=== PATIENT | male | born 1995 | race American Indian/Alaskan Native ===

== ENCOUNTER 2022-03-11 17:30 | Inpatient (IN) ==
[2022-03-11] MEDS ORDERED: SODIUM CHLORIDE 0.9% 1000ML 1,000 ML IV STA (17:57)
--- NOTE | 2022-03-11 18:10 | Emergency Department Note ---
Impression & Plan Perforated abdominal viscus, Abdominal pain ED Provider Note Provider: Rosalio Shaikh MD DATE OF SERVICE: 03/11/2022 CHIEF COMPLAINT: Lower abdominal pain HISTORY OF PRESENT ILLNESS: Patient is a 26-year-old gentleman presenting via ambulance from the detention today with the onset this afternoon of lower abdominal discomfort while getting his hair done. Patient vomited twice. Reports some shortness of breath at this time. Denies URI symptoms. Denies back pain or chest pain. Denies ingestion. Denies genital pain. No bloody quality of the vomit earlier. No medicines prior to arrival. No history of fever, trauma, or significant intra-abdominal surgery. Does report a bit of heartburn at times. REVIEW OF SYSTEMS: A total of 10 review of systems was obtained and negative except as stated above in the HPI. PAST MEDICAL HISTORY: As noted above MEDICATIONS: None reported. SOCIAL HISTORY: Prisoner at [facility] PHYSICAL EXAM: GENERAL: alert and oriented on stretcher somewhat tachypneic with guards. Head: normocephalic and atraumatic EYES: No injection, discharge or icterus. NECK: Trachea midline. Supple. ENT: Mucous membranes pink and moist. LUNGS: Airway patent. No retractions. Breath sounds clear with good air entry bilaterally. HEART: Regular rate and rhythm. No chest wall tenderness ABDOMEN: Soft without guarding or significant pain. Patient asked for his lower abdomen be touched as he states this feels improved. Negative Mcknight sign thus. Not peritoneal neck. SKIN: Acyanotic, warm, dry, without rashes EXTREMITIES: Without swelling, tenderness or deformity NEUROLOGICAL: No focal deficits. No aphasia. No facial droop or slurred speech. EK bpm normal sinus rhythm. No PVC or PAC. No acute ST segment elevation or depression with QTC 475. Normal axis. No priors. CONTINUOUS CARDIAC MONITORING: was ordered and showed a heart rate of 90s-100s bpm in normal sinus rhythm to sinus tachycardia Patient's laboratory studies and imaging reviewed. Differential includes Appendicitis, testicular torsion, infections, diverticul itis, UTI, obstruction, mesenteric ischemia, aortic pathology, inflammatory bowel disease, renal colic, PUD, pancreatitis, biliary pathology, hernia, volvulus, constipation, as well as other pathologies. IMPRESSION/MEDICAL DECISION MAKING: Reports lower abdominal discomfort but not pain worse with palpation actually improved with palpation. Denies complaint. No blood reported in the vomit earlier. Basic blood work including troponin and lipase were sent. CT of the pelvis to exclude intra-abdominal pathology be completed. Denies foreign body ingestion. No significant trauma history. X-ray obtained. Not hypoxic here and I doubt he is suffering from PE especially with the lower abdominal discomfort he reports. Given some symptomatic treatment with fluids, Zofran, and Toradol initially. Blood work without leukocytosis and minimal anemia. No significant electrolyte abnormality. No evidence of hepatitis or pancreatitis. No evidence of cardiac injury and negative COVID testing. CT abdomen pelvis completed per radiology pneumoperitoneum is noted with the top of normal limits appendix but concern for possible gastric or duodenal ulcer given some inflammation in that area. Patient does endorse of heartburn symptoms but denies significant NSAID usage or alcohol usage at this point. Given some morphine for pain. Given a dose of Protonix as well. Discussed with general surgery team findings now having significant tenderness on exam of the abdomen. Given a dose of Zosyn. DIAGNOSIS: Perforated viscus, lower abdominal pain, nausea and vomiting DISPOSITION: To the OR with general surgery Past Med/Surg History Medical History (Updated 03/11/22 @ 23:12 by Rosalio Shaikh M.D.) Perforated abdominal viscus Social History Smoking Status: Current every day smoker Preferred Language: Macedonian Results & Data (ED) Vital Signs Vital Signs - 24 hr 03/11/22 17:36 03/11/22 18:01 03/11/22 18:14 Temperature 36.5 C Temperature Source Oral Pulse Rate 99 H 100 H 94 H Pulse Rate [Right Finger] Pulse Rate from SpO2 Sensor 94 H Respiratory Rate 18 18 26 H Respiratory Effort / Characteristics Non-Labored Spontaneous Respiratory Depth Normal Respiratory Pattern Regular Blood Pressure 154/93 H 136/75 Blood Pressure [Right Arm] Blood Pressure Mean 113 95 Blood Pressure Mean [Right Arm] Blood Pressure Position Sitting Pulse Oximetry 96 97 97 Oxygen Delivery Method Room Air Room Air Room Air Sepsis Recent Fever Within 48 Hours No Sepsis New/Unexplained Change in Mental Status No Sepsis Action Taken by Nursing No Action Required 03/11/22 18:30 03/11/22 21:00 Temperature Temperature Source Pulse Rate 93 H Pulse Rate [Right Finger] 94 H Pulse Rate from SpO2 Sensor 95 H Respiratory Rate 44 H 16 Respiratory Effort / Characteristics Respiratory Depth Respiratory Pattern Blood Pressure 138/82 Blood Pressure [Right Arm] 137/73 Blood Pressure Mean 100 Blood Pressure Mean [Right Arm] 94 Blood Pressure Position Pulse Oximetry 93 96 Oxygen Delivery Method Room Air Sepsis Recent Fever Within 48 Hours Sepsis New/Unexplained Change in Mental Status Sepsis Action Taken by Nursing Laboratory Data Result diagrams: 03/11/22 17:39 03/11/22 17:39 Lab Results 03/11/22 03/11/22 03/11/22 Range/Units 17:39 17:39 18:14 WBC 8.08 (4.8-10.8) K/uL RBC 4.91 (4.7-6.1) M/uL Hgb 13.5 L (14.0-18.0) g/dL Hct 39.2 L (42-52) % MCV 79.8 L (80-100) fL MCH 27.5 (25-34) pg MCHC 34.4 (32-36) g/dL RDW Std Deviation 34.3 L (36.4-46.3) fL RDW Coeff of Diann 11.8 (11.5-14.5) % Plt Count 260 (130-400) K/uL MPV 11.5 H (7.4-10.4) fL Immature Gran % (Auto) 0.1 % Neut % (Auto) 61.2 % Lymph % (Auto) 29.7 % Fallon % (Auto) 8.7 % Eos % (Auto) 0.2 % Baso % (Auto) 0.1 % Neut # (Auto) 4.94 (1.4-6.5) K/uL Lymph # (Auto) 2.40 (1.2-3.4) K/uL Fallon # (Auto) 0.70 H (0.11-0.59) K/uL Eos # (Auto) 0.02 (0-0.5) K/uL Baso # (Auto) 0.01 (0-0.2) K/uL Immature Gran # (Auto) 0.01 (0.00-0.02) K/uL Sodium 138 (136-145) mmol/L Potassium 3.5 (3.5-5.1) mmol/L Chloride 105 (98-107) mmol/L Carbon Dioxide 25 (21-32) mmol/L Anion Gap 8 (3-11) BUN 14 (6-23) mg/dl Creatinine 0.87 (0.6-1.4) mg/dl Est Cr Clr Drug Dosing 126.7 ml/min Est GFR ( Amer) 140.0 ml/min Est GFR (Non-Af Amer) 120.8 ml/min BUN/Creatinine Ratio 16.1 (10-20) Glucose 99 (70-99(Fasting)) mg/dl Calcium 9.4 (8.5-10.1) mg/dl Total Bilirubin 1.0 (0.2-1.0) mg/dl AST 19 (13-39) U/L ALT 17 (7-52) U/L Alkaline Phosphatase 83 (34-104) U/L Troponin I High Sens 6.6 (0-20) pg/ml Total Protein 7.2 (6.0-8.3) gm/dl Albumin 4.5 (3.4-5.0) gm/dl Globulin 2.7 (2.5-4.0) gm/dl Albumin/Globulin Ratio 1.7 (0.9-2) Lipase 31 (11-82) U/L SARS-CoV-2, RNA, NAAT NEGATIVE (NEGATIVE) Administered Medications Discontinued Medications Sodium Chloride (Nss 1000ml) 1,000 mls @ 999 mls/hr IV .Q1H1M STA Stop: 03/11/22 18:57 Last Infusion: 03/11/22 19:34 Dose: 0 mls/hr Documented by: [id number] Admin: 03/11/22 18:33 Dose: 999 mls/hr Documented by: [id number] Pantoprazole Sodium 80 mg/ (Dextrose) 100 mls @ 400 mls/hr IV ONE STA Stop: 03/11/22 21:08 Last Infusion: 03/11/22 22:00 Dose: 0 mls/hr Documented by: [id number] Admin: 03/11/22 21:41 Dose: 400 mls/hr Documented by: [id number] Piperacillin Sod/Tazobactam Sod (Zosyn) 4.5 gm in 120 mls @ 240 mls/hr IV NOW ONE Stop: 03/11/22 21:25 Last Infusion: 03/11/22 21:41 Dose: 0 mls/hr Documented by: [id number] Admin: 03/11/22 21:03 Dose: 240 mls/hr Documented by: [id number] Ioversol (Optiray 320 100ml) 94 ml IV ONCE ONE Stop: 03/11/22 20:04 Last Admin: 03/11/22 20:04 Dose: 94 ml Documented by: [id number] Ketorolac Tromethamine (Ketorolac Tromethamine 15 Mg/Ml Vial) 10 mg IV NOW ONE Stop: 03/11/22 18:12 Last Admin: 03/11/22 18:33 Dose: 10 mg Documented by: [id number] Morphine Sulfate (Morphine Sulfate 4 Mg/Ml 1 Ml Carp\Vial) 4 mg IV NOW STA Stop: 03/11/22 20:55 Last Admin: 03/11/22 21:03 Dose: 4 mg Documented by: [id number] Ondansetron HCl (Ondansetron Inj 2 Mg/Ml 2 Ml Vial) 4 mg IV NOW STA Stop: 03/11/22 18:12 Last Admin: 03/11/22 18:33 Dose: 4 mg Documented by: [id number] Imaging Data Radiologist's Impression: Abdomen/Pelvis CT 03/11/22 17:[address] WITH IV CONTRAST CT DOSE: 588.31 mGycm HISTORY: Acute nausea with lower abdominal pain nausea, lower pain TECHNIQUE: Multiaxial CT images of the abdomen and pelvis were performed following the IV administration of 94 cc of Optiray, A dose lowering technique was utilized adhering to the principles of ALARA. COMPARISON STUDY: Chest radiograph of same day FINDINGS: Study is degraded by respiratory motion artifact. Imaged inferior cardiac chambers are unremarkable. Mild dependent subsegmental bibasilar atelectasis. There is a considerable amount of pneumoperitoneum which is most pronounced within the mid and upper abdomen. Unremarkable spleen, pancreas and adrenal glands. There is equivocal gallbladder wall thickening. Unremarkable liver. Patency of the hepatic and portal veins. Unremarkable kidneys. No hydronephrosis. Partially decompressed bladder with mild wall thickening. Small volume of abdominal pelvic ascites. Small hiatal hernia with distal esophageal wall thickening. Limited evaluation of the large and small bowel secondary to motion artifact. The appendix measures within the upper limits of normal at 7 mm. No definite periappendiceal inflammation. There is wall thickening within the pylorus and proximal duodenum with mild adjacent inflammatory stranding. Unremarkable soft tissues. No acute fracture. IMPRESSION: 1. Considerable amount of pneumoperitoneum compatible with perforated viscus. The site of perforation is not definitively seen, however there is wall thickening within the pylorus and proximal duodenum with mild adjacent inflammatory stranding. Findings are suspicious for a perforated ulcer. 2. The appendix measures within the upper limits of normal at 7 mm however does not appear to be inflamed. 3. Small volume of abdominal pelvic ascites. 4. Small hiatal hernia. Findings were discussed with Dr. Shaikh on 03/11/2022 at 8:52 PM. ACT 112: Negative or not required by law. The above report was generated using voice recognition software. It may contain grammatical, syntax or spelling errors. Electronically signed by: Esvin Car M.D. 03/11/2022 8:54 PM Chest X-Ray 03/11/22 17:57 XR chest 1V portable HISTORY: 26 years-old Male sob, abd pain acute shortness of breath COMPARISON: None TECHNIQUE: Portable AP view of the chest FINDINGS: The cardiomediastinal and hilar silhouettes are within normal limits. No pneumothorax, pleural effusion, airspace consolidation or overt pulmonary edema. Bones appear grossly intact. Subdiaphragmatic linear lucency is noted on the right. IMPRESSION: 1. No acute cardiopulmonary abnormality. 2. Subtle lucency noted beneath the right hemidiaphragm is favored to be projectional. Pneumoperitoneum could have a similar appearance. Correlate with the ordered CT abdomen and pelvis study of same day. ACT 112: Negative or not required by law. The above report was generated using voice recognition software. It may contain grammatical, syntax or spelling errors. Electronically signed by: Esvin Car M.D. 03/11/2022 6:28 PM Discharge Plan Visit Data Chief Complaint: Abdominal Pain ED Provider: Rosalio Shaikh ED Midlevel Provider: Sumanth Rankin Discharge Problem: Perforated abdominal viscus, Abdominal pain Patient Disposition: Admitted As Inpatient Discharge Instructions Interventions: ED Discharge Assessment Last Done: 03/11/22 21:59 Resident Activity Tracking Resident Involvement: Resident Care Provided Care Provided: Adult ED
[2022-03-11] MEDS ORDERED: KETOROLAC TROMETHAMINE 15 MG/ML VIAL IV ONE (18:11)
[2022-03-11] MEDS ORDERED: ONDANSETRON INJ 2 MG/ML 2 ML VIAL IV STA (18:11)
--- NOTE | 2022-03-11 18:30 | XRay Report ---
XR chest 1V portable HISTORY: 26 years-old Male sob, abd pain acute shortness of breath COMPARISON: None TECHNIQUE: Portable AP view of the chest FINDINGS: The cardiomediastinal and hilar silhouettes are within normal limits. No pneumothorax, pleural effusi on, airspace consolidation or overt pulmonary edema. Bones appear grossly intact. Subdiaphragmatic li near lucency is noted on the right. IMPRESSION: 1. No acute cardiopulmonary abnormality. 2. Subtle lucency noted beneath the right hemidiaphragm is favored to be projectional. Pneumoperitone um could have a similar appearance. Correlate with the ordered CT abdomen and pelvis study of same da y. ACT 112: Negative or not required by law. The above report was generated using voice recognition software. It may contain grammatical, syntax o r spelling errors. Electronically signed by: Esvin Car M.D. 03/11/2022 6:28 PM
[2022-03-11 18:31] LABS: Basophils # (auto) 0.01 K/uL (0-0.2); Basophils % (auto) 0.1 %; Eosinophils # (auto) 0.02 K/uL (0-0.5); Eosinophils % (auto) 0.2 %; Hematocrit (blood only) 39.2 % (42-52); Hemoglobin 13.5 g/dL (14.0-18.0); Immature Granulocytes # (auto) 0.01 K/uL (0.00-0.02); Immature Granulocytes % (auto) 0.1 %; Lymphocytes % (auto) 29.7 %; Mean Corpuscular Hemoglobin 27.5 pg (25-34); Mean Corpuscular Hgb Conc 34.4 g/dL (32-36); Mean Corpuscular Volume 79.8 fL (80-100); Mean Platelet Volume 11.5 fL (7.4-10.4); Monocytes % (auto) 8.7 %; Neutrophils # (auto) 4.94 K/uL (1.4-6.5); Neutrophils % (auto) 61.2 %; Platelet Count 260 K/uL (130-400); RDW Coefficient of Variation 11.8 % (11.5-14.5); RDW Standard Deviation 34.3 fL (36.4-46.3); Red Blood Count 4.91 M/uL (4.7-6.1); White Blood Count 8.08 K/uL (4.8-10.8)
[2022-03-11 18:53] LABS: Albumin Globulin Ratio 1.7 (0.9-2); Albumin Level 4.5 gm/dl (3.4-5.0); BUN Creatinine Ratio 16.1 (10-20); Calcium 9.4 mg/dl (8.5-10.1); Creatinine Clr Calc Pharmacy 126.7 ml/min; Est GFR (Non-African American) 120.8 ml/min; Globulin 2.7 gm/dl (2.5-4.0); Potassium 3.5 mmol/L (3.5-5.1); Total Protein 7.2 gm/dl (6.0-8.3)
[2022-03-11 18:57] LABS: Troponin I High Sensitivity 6.6 pg/ml (0-20)
[2022-03-11] MEDS ORDERED: OPTIRAY 320 100ml IV ONE (20:03)
[2022-03-11] MEDS ORDERED: MoRPHine SULFATE 4 MG/ML 1 ML CARP\\VIAL IV STA (20:54)
[2022-03-11] MEDS ORDERED: PANTOprazole 80 MG in DEXTROSE 5% 100 ML IV STA (20:54)
[2022-03-11] MEDS ORDERED: PIPERACILLIN/TAZOBACTAM 4.5 GM/120 ML BAG IV ONE (20:56)
--- NOTE | 2022-03-11 20:56 | CT Scan Report ---
ABDOMEN AND PELVIS CT WITH IV CONTRAST CT DOSE: 588.31 mGycm HISTORY: Acute nausea with lower abdominal pain nausea, lower pain TECHNIQUE: Multiaxial CT images of the abdomen and pelvis were performed following the IV administrat ion of 94 cc of Optiray, A dose lowering technique was utilized adhering to the principles of ALARA. COMPARISON STUDY: Chest radiograph of same day FINDINGS: Study is degraded by respiratory motion artifact. Imaged inferior cardiac chambers are unre markable. Mild dependent subsegmental bibasilar atelectasis. There is a considerable amount of pneumo peritoneum which is most pronounced within the mid and upper abdomen. Unremarkable spleen, pancreas and adrenal glands. There is equivocal gallbladder wall thickening. Unr emarkable liver. Patency of the hepatic and portal veins. Unremarkable kidneys. No hydronephrosis. Pa rtially decompressed bladder with mild wall thickening. Small volume of abdominal pelvic ascites. Sma ll hiatal hernia with distal esophageal wall thickening. Limited evaluation of the large and small natalie wel secondary to motion artifact. The appendix measures within the upper limits of normal at 7 mm. No definite periappendiceal inflammation. There is wall thickening within the pylorus and proximal duod enum with mild adjacent inflammatory stranding. Unremarkable soft tissues. No acute fracture. IMPRESSION: 1. Considerable amount of pneumoperitoneum compatible with perforated viscus. The site of perforation is not definitively seen, however there is wall thickening within the pylorus and proximal duodenum with mild adjacent inflammatory stranding. Findings are suspicious for a perforated ulcer. 2. The appendix measures within the upper limits of normal at 7 mm however does not appear to be infl malik. 3. Small volume of abdominal pelvic ascites. 4. Small hiatal hernia. Findings were discussed with Dr. Shaikh on 03/11/2022 at 8:52 PM. ACT 112: Negative or not required by law. The above report was generated using voice recognition software. It may contain grammatical, syntax o r spelling errors. Electronically signed by: Esvin Car M.D. 03/11/2022 8:54 PM
[2022-03-11] MEDS ORDERED: fentaNYL citrate 100 MCG/2 ML VIAL IV PRN (21:26)
[2022-03-11] MEDS ORDERED: ePHEDrine sulfate 50 MG/ML AMP IV PRN (21:26)
[2022-03-11] MEDS ORDERED: HYDROmorphone INJ 1 MG/ML SYRINGE IV PRN (21:26)
[2022-03-11] MEDS ORDERED: ONDANSETRON INJ 2 MG/ML 2 ML VIAL IV PRN (21:26)
[2022-03-11] MEDS ORDERED: ATROPINE SULFATE 0.1 MG/ML 10ML SYR IV PRN (21:26)
--- NOTE | 2022-03-11 21:26 | Anesthesiology Consultation ---
Date of Service March 11, 2022 Assessment & Plan (1) Encounter for pre-operative examination: Chart Review Chart Review: data entry analyst initiated History Surgery Operation Date: 03/11/22 22:00 Proposed Procedures p Laparoscopic Operative - Skyler Orozco DO, FACS s Bowel Resection - Skyler Orozco DO, FACS Height/Weight Height: 5 ft 8 in Weight: 76.1 kg Social History Smoking Status: Current every day smoker Physical Exam Vital Signs Last Vital Signs Temp 97.7 F 03/11/22 17:36 Pulse 94 H 03/11/22 21:00 Resp 16 03/11/22 21:00 BP 137/73 03/11/22 21:00 Pulse Ox 96 03/11/22 21:00 Testing Laboratory Results 03/11/22 17:39 03/11/22 17:39 Electrocardiogram Date: 03/11/22 Findings: + NSR @ (96 bpm) Chest X-Ray Date: 03/11/22 IMPRESSION: 1. No acute cardiopulmonary abnormality. 2. Subtle lucency noted beneath the right hemidiaphragm is favored to be projectional. Pneumoperitoneum could have a similar appearance. Correlate with the ordered CT abdomen and pelvis study of same day.
[2022-03-11] MEDS ORDERED: SUCCINYLCHOLINE CHLORIDE 20 MG/ML 10 ML VIAL IV ONE (21:35)
[2022-03-11] MEDS ORDERED: LIDOCAINE 2% 2 ML VIAL/AMP(20MG/ML) INFIL ONE (21:35)
[2022-03-11] MEDS ORDERED: PROPOFOL IV EMULSION 10 MG/ML 20 ML VIAL IV ONE (21:35)
[2022-03-11] MEDS ORDERED: fentaNYL citrate 100 MCG/2 ML VIAL ONE ×2 (21:36→22:45)
[2022-03-11] MEDS ORDERED: BUPIVACAINE 0.5 % 5 MG/1 ML MPF 30ML VIAL ONE (21:45)
--- NOTE | 2022-03-11 21:54 | History & Physical Report ---
Date of Service March 11, 2022 Assessment & Plan (1) Perforated abdominal viscus: Plan: 26-year-old incarcerated male with likely perforated viscus, most likely gastric or duodenal ulcer. Plan for diagnostic laparoscopy, possible laparotomy, possible bowel resection a nd ostomy Risk the procedure were discussed including elevated bleeding, infection, conversion to open, damage to surrounding structures, need for future more extensive surgery, abscess, and risk of anesthesia Zosyn preoperatively Patient will be admitted postoperatively History of Present Illness Chief Complaint: Abdominal pain Primary Care Provider: HARLAN Burger 26-year-old incarcerated male presented emergency department with sudden onset abdominal pain. Precipitating factors. No prior episodes. He admits to some reflux over the past few weeks. He is not taking any anti-inflammatories. Denies swallowing any foreign bodies. No history of ulcers. No family history of cancer. Otherwise healthy, not on any blood thinners. Past Med/Surg History Medical History (Updated 03/11/22 @ 21:52 by Skyler Orozco DO, FACS) Perforated abdominal viscus Social History Smoking Status: Current every day smoker Preferred Language: Macanese Review of Systems Review of Systems: All systems reviewed & are unremarkable except as noted in HPI & below Physical Exam Constitutional: WD/WN, vitals as above Respiratory: normal respiratory effort, lungs clear to auscultation Cardiovascular: RRR, no murmur, no edema Gastrointestinal (Abdomen): Percussion/Palpation: + abdomen tender (Diffuse tenderness, worse in right upper quadrant), + guarding (Localized guarding in right upper quadrant) and abdomen soft; abdomen not rigid and no hernia Results & Data Results & Data ([facility]) Vital Signs (Past 12 Hours) Vital Signs Temp Pulse Pulse Resp BP BP Pulse Ox 03/11/22 21:00 94 H 16 137/73 96 03/11/22 18:30 93 H 44 H 138/82 93 03/11/22 18:14 94 H 26 H 136/75 97 03/11/22 18:01 100 H 18 97 03/11/22 17:36 36.5 C 99 H 18 154/93 H 96 Laboratory Results Laboratory Results - last 24 hr 03/11/22 03/11/22 03/11/22 17:39 17:39 18:14 WBC 8.08 RBC 4.91 Hgb 13.5 L Hct 39.2 L MCV 79.8 L MCH 27.5 MCHC 34.4 RDW Std Deviation 34.3 L RDW Coeff of Diann 11.8 Plt Count 260 MPV 11.5 H Immature Gran % (Auto) 0.1 Neut % (Auto) 61.2 Lymph % (Auto) 29.7 Maries % (Auto) 8.7 Eos % (Auto) 0.2 Baso % (Auto) 0.1 Neut # (Auto) 4.94 Lymph # (Auto) 2.40 Maries # (Auto) 0.70 H Eos # (Auto) 0.02 Baso # (Auto) 0.01 Immature Gran # (Auto) 0.01 Sodium 138 Potassium 3.5 Chloride 105 Carbon Dioxide 25 Anion Gap 8 BUN 14 Creatinine 0.87 Est Cr Clr Drug Dosing 126.7 Est GFR ( Amer) 140.0 Est GFR (Non-Af Amer) 120.8 BUN/Creatinine Ratio 16.1 Glucose 99 Calcium 9.4 Total Bilirubin 1.0 AST 19 ALT 17 Alkaline Phosphatase 83 Troponin I High Sens 6.6 Total Protein 7.2 Albumin 4.5 Globulin 2.7 Albumin/Globulin Ratio 1.7 Lipase 31 SARS-CoV-2, RNA, NAAT NEGATIVE Diagnostic Findings I personally viewed and interpreted CT scan myself. I agree with the assessment of pneumoperitoneum with inflammation near the pylorus. this is related to peptic ulcer. ABDOMEN AND PELVIS CT WITH IV CONTRAST CT DOSE: 588.31 mGycm HISTORY: Acute nausea with lower abdominal pain nausea, lower pain TECHNIQUE: Multiaxial CT images of the abdomen and pelvis were performed following the IV administration of 94 cc of Optiray, A dose lowering technique was utilized adhering to the principles of ALARA. COMPARISON STUDY: Chest radiograph of same day FINDINGS: Study is degraded by respiratory motion artifact. Imaged inferior cardiac chambers are unremarkable. Mild dependent subsegmental bibasilar atelectasis. There is a considerable amount of pneumoperitoneum which is most pronounced within the mid and upper abdomen. Unremarkable spleen, pancreas and adrenal glands. There is equivocal gallbladder wall thickening. Unremarkable liver. Patency of the hepatic and portal veins. Unremarkable kidneys. No hydronephrosis. Partially decompressed bladder with mild wall thickening. Small volume of abdominal pelvic ascites. Small hiatal hernia with distal esophageal wall thickening. Limited evaluation of the large and small bowel secondary to motion artifact. The appendix measures within the upper limits of normal at 7 mm. No definite periappendiceal inflammation. There is wall thickening within the pylorus and proximal duodenum with mild adjacent inflammatory stranding. Unremarkable soft tissues. No acute fracture. IMPRESSION: 1. Considerable amount of pneumoperitoneum compatible with perforated viscus. T he site of perforation is not definitively seen, however there is wall thickening within the pylorus and proximal duodenum with mild adjacent inflammatory stranding. Findings are suspicious for a perforated ulcer. 2. The appendix measures within the upper limits of normal at 7 mm however does not appear to be inflamed. 3. Small volume of abdominal pelvic ascites. 4. Small hiatal hernia. PG Care Time/CCT Total # of Minutes Spent Total Time Spent with Patient: Total time spent is greater than 50% in coordination of care (as documented) at patient's floor/unit and/or counseling patient: Coding Level of Care Code 55662 Initial Inpt Care Lvl 3 Diagnoses Perforated abdominal viscus R19.8
[2022-03-11] MEDS ORDERED: ONDANSETRON INJ 2 MG/ML 2 ML VIAL ONE (22:33)
--- NOTE | 2022-03-12 00:22 | Operative Report ---
PG Post Operative Report Pre & Post Diagnosis Operation Date: 03/11/22 22:00 Pre-Op Diagnosis: Perforated viscus Post-Op Diagnosis: Perforated duodenal ulcer, peritonitis I identified the patient and participated in the time-out.: Yes Procedure Operation Date: 03/11/22 22:00 Actual Procedures p Diagnostic Laparoscopy, laparoscopic repair of perforated duodenal ulcer with Emiliano patch, laparoscopic washout Skyler Orozco DO, AMY Surgeon Skyler Orozco DO, AMY Lopper None Estimated Blood Loss 5 Findings Consistent with Post-Op Diagnosis 5 mm perforated ulcer in the duodenum just distal to the pylorus. Closed primarily with interrupted 3-0 silk sutures, omentum tied into place with suture tails. 10 mm flat DAVE drain placed. No evidence of continued leak. Washed out with 2 L of saline. Specimens Abdominal fluid for cultures Drains NG tube 10 mm DAVE drain in right upper quadrant Anesthesia Type General Complications none Disposition Accompanied Patient To Recovery: No Disposition: Recovery Room Indications 26-year-old incarcerated male presented with sudden onset abdominal pain, CT scan showed pneumo peritoneum and concern for perforated duodenal ulcer. Plan for diagnostic laparoscopy, possible open laparotomy, possible bowel resection, possible ostomy. The risks of the procedure were discussed, all questions were answered, and the patient agreed to proceed with surgery as planned. Description of Procedure The patient was properly identified, consented, and taken to the operating room where he was placed in the supine position. General endotracheal anesthesia was induced. An NG tube, SCDs and a safety belt were placed. Preoperative antibiot ics were administered. The patient's abdomen was prepped and draped in the standard sterile fashion. Surgical timeout was performed and all parties were in agreement that this was the correct patient and procedure to be performed and we continued as planned. A stab incision was made in the left upper quadrant and the Veress needle was inserted. Saline drop test confirmed entry into the peritoneum. The abdomen was insufflated with carbon dioxide which the patient tolerated without incident. The abdomen was then entered using the Optiview technique and a 5 mm trocar. The laparoscope was inserted and no damage from initial trocar or Veress needle placement was noted. There was turbid fluid and fibrinous exudate throughout the abdomen, most notably in the right upper quadrant. There is evidence of peritonitis. 5 mm ports were then placed right subcostal position x2, in the left periumbilical region. The patient was placed in reverse Trendelenburg position and rotated to the left. The abdomen was explored. I began by exploring the right upper quadrant where the suspected perforation was identified in the duodenum. It was approximately 5 to 6 mm in size and was just distal to the pylorus on the anterior surface of the duodenum. It had partially sealed with omentum. This was teased away and the perforation was confirmed. There was no other perforation or concerning areas identified. The gallbladder was retracted to retract the liver in order to allow for better visualization. 3-0 silk sutures x3 were then used to close the perforation primarily in a simple interrupted fashion. This was closed across the bowel to prevent narrowing. The tails were left long to assist with placement of the Emiliano patch. A tongue of omentum was then divided from the remainder of the omentum and reached easily over the repair. This was divided using the harmonic scalpel. The tails of the silk sutures were then used to secure the omental patch into place. The NG was confirmed to be in place. Purulent fluid found in the right upper quadrant was suctioned and sent for culture. The abdomen was irrigated with 2 L of saline. The bowel and colon were briefly explored and showed no evidence of injury or perforation. The appendix was normal. Gentle exploration of the repair showed no evidence of leak. A 10 mm flat DAVE drain was then placed and exited through the right subcostal position and was laid over the repair. Hemostasis was confirmed and the abdomen was irrigated. 5 mm trochars were removed under direct visualization and the abdomen was allowed to collapse. DAVE drain was secured into place using a 2-0 nylon suture. The skin of all ports was closed with 4-0 Monocryl subcuticular sutures. Dermabond was placed over the wounds, and a drain sponge was placed along with drain. The patient was extubated in the operating room and taken to the PACU where he recovered without apparent incident. All sponge, instrument and needle counts were correct at the conclusion of the procedure. The patient tolerated the procedure well. I attest to the content of the Intraoperative Record and any orders documented therein. Any exceptions are noted below.
[2022-03-12] MEDS ORDERED: ROCURONIUM BROMIDE 10 MG/ML 5 ML VIAL IV ONE (00:25)
--- NOTE | 2022-03-12 00:30 | Anesthesiology Progress Note ---
Date of Service March 12, 2022 Anesthesia Post Procedure Vital Signs Vital Signs: Temp Pulse Pulse Resp BP BP Pulse Ox 03/11/22 21:00 94 H 16 137/73 96 03/11/22 18:30 93 H 44 H 138/82 93 03/11/22 18:14 94 H 26 H 136/75 97 03/11/22 18:01 100 H 18 97 03/11/22 17:36 97.7 F 99 H 18 154/93 H 96 Pain Intensity Lower Abdomen: Pain Intensity: 10 Transfer of Care Handoff Completed per policy Notes Mental Status: alert / awake / arousable and participated in evaluation Patient Amnestic to Procedure: Yes Nausea / Vomiting: adequately controlled Pain: adequately controlled Airway Patency, RR, SpO2: stable & adequate BP & HR: stable & adequate Hydration State: stable & adequate Anesthetic Complications: no major complications apparent and Pt Satisfied with anesthetic care
[2022-03-12] MEDS ORDERED: PANTOprazole 80 MG in DEXTROSE 5% 100 ML IV ONE (01:25)
[2022-03-12] MEDS ORDERED: PANTOPRAZOLE BOLUS/DRIP 1 EA IV STA (01:25)
[2022-03-12] MEDS: LACTATED RINGER'S 1,000 ML IV SCH ×3 (02:02→17:45)
[2022-03-12] MEDS: ACETAMINOPHEN 1,000 MG/100 ML VIAL IV SCH ×3 (02:08→16:54)
[2022-03-12] MEDS: PANTOprazole 40 MG in DEXTROSE 5% 100 ML IV SCH ×5 (02:08→22:06)
[2022-03-12] MEDS: PIPERACILLIN/TAZOBACTAM 3.375 GM in DEXTROSE 5% 100 ML IV SCH ×3 (02:44→16:53)
--- NOTE | 2022-03-12 08:20 | XRay Report ---
XR KUB/Abdomen 1 view CLINICAL HISTORY: post op, ng placement. COMPARISON STUDY: No previous studies for comparison. TECHNIQUE: Single view of the upper abdomen FINDINGS: The bowel gas pattern is within normal limits without evidence for dilatation or obstruction. NG tube is in place with its tip in the mid body of the stomach. There is no evidence for organomegaly or gr oss intra-abdominal mass. No abnormal calcifications are seen along the course of the urinary tracts bilaterally. No acute osseous pathology. IMPRESSION: 1. No acute intra-abdominal abnormality. 2. Tip of NG tube within the mid body of the stomach. ACT 112: Negative or not required by law. Electronically signed by: Chilango Lewis M.D. 03/12/2022 8:18 AM
--- NOTE | 2022-03-12 09:38 | Surgery Progress Note ---
Date of Service March 12, 2022 Assessment & Plan (1) Perforated duodenal ulcer: Plan: S/p laparoscopic repair of perforated duodenal ulcer (primary repair with iwona patch) Pt is feeling well. Denies pain or nausea. Vitals are stable. Abdomen is soft, non distended. Incisions c/d/i DAVE serosang- 80cc documented NGT in place, 350cc documented. Plan to keep in place for now. Consider contrast study next wk to eval for leak prior to diet initiation Continue IV abx and ppi Will check with lab regarding order for h.pylori Admission and Anticipated Discharge Date Admission Date: March 12, 2022 Supervising Physician Co-Signing Physician Notes patient seen and examined, labs and imaging reviewed, agree with above. POD#1 laparoscopic repair of duodenal ulcer. Doing well, pain improved, febrile post op. NG tube irritating back of throat. AFVSS. Abd soft, appropriately ttp, incisions w/o infection. DAVE ss. NG to LIWS. WBC up from pre op, cutlures pending. Continue NG, DAVE, NPO. Continue zosyn and protonix drip. H pylori testing. UGI study tuesday. start ppn. start a/c, ambulate, IS. Dr. Escobar covering over weekend. Subjective Patient resting. Denies pain or nausea. No complaints. Physical Exam Physical Exam: awake/alert Gastrointestinal (Abdomen): Inspection/Auscultation: + abdominal surgical incision (c/d/i) and + abdominal surgical drain present (serosang); abdomen not distended Percussion/Palpation: abdomen soft; abdomen nontender NGT in place Results & Data ([facility]) Vital Signs (Past 12 Hours) Vital Signs Temp Pulse Pulse Pulse Resp BP BP 03/12/22 07:35 37.1 C 84 20 118/71 03/12/22 04:25 36.7 C 82 18 105/68 03/12/22 03:15 37.3 C 92 H 17 113/68 03/12/22 02:15 37 C 84 14 120/71 03/12/22 01:45 36.9 C 98 H 14 114/70 03/12/22 01:15 37.6 C H 78 16 124/80 03/12/22 01:00 36.4 C L 78 18 126/69 03/12/22 00:50 79 22 126/83 03/12/22 00:40 72 20 139/84 03/12/22 00:30 84 22 132/94 03/12/22 00:23 36.1 C L 79 23 142/68 H Pulse Ox Pulse Ox 03/12/22 07:35 97 03/12/22 04:25 94 03/12/22 03:15 94 03/12/22 02:15 92 03/12/22 01:45 92 03/12/22 01:15 93 93 03/12/22 01:00 93 03/12/22 00:50 93 03/12/22 00:40 97 03/12/22 00:30 96 03/12/22 00:23 94 PG Care Time/CCT Total # of Minutes Spent Total Time Spent with Patient: Total time spent is greater than 50% in coordination of care (as documented) at patient's floor/unit and/or counseling patient: Coding Level of Care Code None Diagnoses Perforated duodenal ulcer K26.5
[2022-03-12 11:10] LABS: Hematocrit (blood only) 37.6 % (42-52); Hemoglobin 12.8 g/dL (14.0-18.0); Immature Granulocytes # (auto) 0.05 K/uL (0.00-0.02); Immature Granulocytes % (auto) 0.3 %; Lymphocytes # (auto) 1.57 K/uL (1.2-3.4); Lymphocytes % (auto) 10.5 %; Mean Corpuscular Hemoglobin 27.4 pg (25-34); Mean Corpuscular Volume 80.3 fL (80-100); Mean Platelet Volume 10.7 fL (7.4-10.4); Monocytes # (auto) 1.24 K/uL (0.11-0.59); Monocytes % (auto) 8.3 %; Neutrophils # (auto) 12.13 K/uL (1.4-6.5); Neutrophils % (auto) 80.9 %; Platelet Count 214 K/uL (130-400); RDW Standard Deviation 35.2 fL (36.4-46.3); Red Blood Count 4.68 M/uL (4.7-6.1); White Blood Count 14.99 K/uL (4.8-10.8)
[2022-03-12 11:33] LABS: BUN Creatinine Ratio 16.3 (10-20); Calcium 8.4 mg/dl (8.5-10.1); Creatinine Clr Calc Pharmacy 137.8 ml/min; Est GFR (African American) 144.9 ml/min
[2022-03-12] MEDS: COUGH DROP (SUGAR FREE) LOZ 24 LOZ/1 BOX BUCCAL PRN ×3 (11:45→21:39)
[2022-03-12] MEDS: ONDANSETRON INJ 2 MG/ML 2 ML VIAL IV PRN ×3 (11:57→21:36)
--- NOTE | 2022-03-12 12:11 | Electrocardiogram Report ---
Test Reason : Blood Pressure : / mmHG Vent. Rate : 095 BPM Atrial Rate : 095 BPM P-R Int : 156 ms QRS Dur : 086 ms QT Int : 378 ms P-R-T Axes : 061 062 058 degrees QTc Int : 475 ms Normal sinus rhythm Normal ECG When compared with ECG of 11-MAR-2022 18:13, (unconfirmed) No significant change was found Confirmed by Vicente Brand ([id number]) on 03/12/2022 12:11:28 PM Referred By: Jennyfer CLAROS Confirmed By:Vicente Brand
[2022-03-12] MEDS: MoRPHine SULFATE 4 MG/ML 1 ML CARP\\VIAL IV PRN ×2 (15:18→19:37)
[2022-03-12] MEDS ORDERED: TPN/PPN CONSULT PHARMACY PRN (16:10)
[2022-03-13] MEDS: MoRPHine SULFATE 4 MG/ML 1 ML CARP\\VIAL IV PRN ×7 (00:03→22:37)
[2022-03-13] MEDS: LACTATED RINGER'S 1,000 ML IV SCH ×2 (01:35→08:56)
[2022-03-13] MEDS: PIPERACILLIN/TAZOBACTAM 3.375 GM in DEXTROSE 5% 100 ML IV SCH ×3 (01:38→17:55)
[2022-03-13] MEDS: ACETAMINOPHEN 1,000 MG/100 ML VIAL IV SCH ×3 (01:38→16:50)
[2022-03-13] MEDS: PANTOprazole 40 MG in DEXTROSE 5% 100 ML IV SCH ×5 (02:28→22:37)
[2022-03-13] MEDS: COUGH DROP (SUGAR FREE) LOZ 24 LOZ/1 BOX BUCCAL PRN ×3 (02:30→19:31)
[2022-03-13] MEDS: ONDANSETRON INJ 2 MG/ML 2 ML VIAL IV PRN ×3 (05:12→23:46)
[2022-03-13 07:14] LABS: Basophils # (auto) 0.01 K/uL (0-0.2); Basophils % (auto) 0.1 %; Eosinophils # (auto) 0.06 K/uL (0-0.5); Eosinophils % (auto) 0.6 %; Hematocrit (blood only) 35.2 % (42-52); Hemoglobin 12.1 g/dL (14.0-18.0); Immature Granulocytes # (auto) 0.03 K/uL (0.00-0.02); Immature Granulocytes % (auto) 0.3 %; Lymphocytes # (auto) 2.28 K/uL (1.2-3.4); Mean Corpuscular Hgb Conc 34.4 g/dL (32-36); Mean Corpuscular Volume 81.5 fL (80-100); Mean Platelet Volume 11.4 fL (7.4-10.4); Monocytes # (auto) 1.01 K/uL (0.11-0.59); Monocytes % (auto) 9.3 %; Neutrophils # (auto) 7.48 K/uL (1.4-6.5); Neutrophils % (auto) 68.7 %; Platelet Count 219 K/uL (130-400); RDW Coefficient of Variation 11.8 % (11.5-14.5); RDW Standard Deviation 35.1 fL (36.4-46.3); Red Blood Count 4.32 M/uL (4.7-6.1); White Blood Count 10.87 K/uL (4.8-10.8)
--- NOTE | 2022-03-13 07:23 | XRay Report ---
KUB HISTORY: Status post placement of an enteric tube NG tube placement confirmation COMPARISON: KUB 03/12/2022 FINDINGS: An enteric tube is still tip projects over the stomach. Unchanged linear 20 cm radiodense s tructure projected over the mid abdomen. Nonobstructive bowel gas pattern. Air-filled loops of large and small bowel within central abdomen with small bowel loops measuring up to approximately 2.8 cm. No renal calculi. No ureteral calculi. No pneumoperitoneum or pneumatosis. No fracture. IMPRESSION: Distal tip of enteric tube projects over the gastric body. ACT 112: Negative or not required by law. The above report was generated using voice recognition software. It may contain grammatical, syntax o r spelling errors. Electronically signed by: Esvin Car M.D. 03/13/2022 7:22 AM
[2022-03-13 07:34] LABS: Anion Gap 4 (3-11); BUN Creatinine Ratio 16.4 (10-20); Blood Urea Nitrogen 12 mg/dl (6-23); Calcium 8.4 mg/dl (8.5-10.1); Carbon Dioxide 27 mmol/L (21-32); Chloride 103 mmol/L (98-107); Est GFR (African American) > 150.0 ml/min; Est GFR (Non-African American) 129.8 ml/min; Glucose 80 mg/dl (70-99(Fasting)); Magnesium 1.7 mg/dl (1.7-2.4); Phosphorus 2.3 mg/dl (2.5-4.9); Potassium 3.5 mmol/L (3.5-5.1); Sodium 134 mmol/L (136-145)
--- NOTE | 2022-03-13 08:36 | Surgery Progress Note ---
Date of Service March 13, 2022 Assessment & Plan (1) Perforated duodenal ulcer: Plan: Patient is doing well status post laparoscopic repair of perforated duodenal ulcer Continue his NG tube to wall suction and his DAVE drain to bulb suction Keep n.p.o., give IV fluids WBC is trending down, continue antibiotics and PPI We will plan on upper GI Tuesday Admission and Anticipated Discharge Date Admission Date: March 12, 2022 Subjective Patient seen and examined. Has minimal abdominal pain. Denies any nausea vomiting. His NG tube was slightly dislodged this morning and then was replaced. KUB confirmed position in the gastric body. He denies any flatus or bowel movement. Physical Exam Constitutional: WD/WN, vitals as above Gastrointestinal (Abdomen): Abdomen soft, minimally tender, mild distention Incisions healing well without erythema or drainage DAVE drain with serosanguineous output, nonbilious Results & Data ([facility]) Vital Signs (Past 12 Hours) Vital Signs Temp Pulse Resp BP Pulse Ox 03/13/22 01:59 37.1 C 69 18 108/62 97 03/12/22 23:58 97 03/12/22 23:52 37.1 C 93 H 14 121/69 88 L PG Care Time/CCT Total # of Minutes Spent Total Time Spent with Patient: Total time spent is greater than 50% in coordination of care (as documented) at patient's floor/unit and/or counseling patient: Coding Level of Care Code None Diagnoses Perforated duodenal ulcer K26.5
[2022-03-13] MEDS: ENOXAPARIN INJ 40 MG/0.4 ML SYR SQ SCH (08:56)
[2022-03-13] MEDS ORDERED: DEXTROSE 10% 1,000 ML IV PRN (11:22)
[2022-03-13] MEDS ORDERED: CLINOLIPID 20% IV FAT EMULSION 250 ML IV SCH (16:00)
[2022-03-13] MEDS ORDERED: PERIPHERAL TPN IV SCH (16:00)
[2022-03-13] MEDS ORDERED: AMINO ACIDS 4.25% IV SCH (16:00)
[2022-03-13] MEDS ORDERED: D5W IV SCH (16:00)
[2022-03-13] MEDS: STOP CLINOLIPID SCH (23:43)
[2022-03-14] MEDS: COUGH DROP (SUGAR FREE) LOZ 24 LOZ/1 BOX BUCCAL PRN ×3 (01:09→09:12)
[2022-03-14] MEDS: PIPERACILLIN/TAZOBACTAM 3.375 GM in DEXTROSE 5% 100 ML IV SCH ×3 (02:21→20:03)
[2022-03-14] MEDS: ACETAMINOPHEN 1,000 MG/100 ML VIAL IV SCH ×3 (02:21→17:36)
[2022-03-14] MEDS: MoRPHine SULFATE 4 MG/ML 1 ML CARP\\VIAL IV PRN ×5 (02:30→20:03)
[2022-03-14] MEDS: PANTOprazole 40 MG in DEXTROSE 5% 100 ML IV SCH ×4 (04:29→19:10)
[2022-03-14] MEDS: diphenhydrAMINE 50 MG/ML VIAL IV PRN ×4 (06:18→22:09)
[2022-03-14 07:13] LABS: Eosinophils # (auto) 0.09 K/uL (0-0.5); Hematocrit (blood only) 35.7 % (42-52); Hemoglobin 11.9 g/dL (14.0-18.0); Immature Granulocytes # (auto) 0.02 K/uL (0.00-0.02); Immature Granulocytes % (auto) 0.2 %; Lymphocytes # (auto) 2.28 K/uL (1.2-3.4); Lymphocytes % (auto) 24.7 %; Mean Corpuscular Hemoglobin 26.8 pg (25-34); Mean Corpuscular Hgb Conc 33.3 g/dL (32-36); Mean Corpuscular Volume 80.4 fL (80-100); Mean Platelet Volume 11.1 fL (7.4-10.4); Monocytes # (auto) 0.78 K/uL (0.11-0.59); Monocytes % (auto) 8.5 %; Neutrophils # (auto) 6.05 K/uL (1.4-6.5); Neutrophils % (auto) 65.6 %; Platelet Count 227 K/uL (130-400); RDW Coefficient of Variation 11.7 % (11.5-14.5); RDW Standard Deviation 34.4 fL (36.4-46.3); Red Blood Count 4.44 M/uL (4.7-6.1); White Blood Count 9.22 K/uL (4.8-10.8)
[2022-03-14 07:53] LABS: BUN Creatinine Ratio 15.2 (10-20); Calcium 8.4 mg/dl (8.5-10.1); Creatinine Clr Calc Pharmacy 139.5 ml/min; Est GFR (African American) 145.7 ml/min; Est GFR (Non-African American) 125.7 ml/min; Magnesium 1.8 mg/dl (1.7-2.4); Phosphorus 4.1 mg/dl (2.5-4.9); Potassium 3.8 mmol/L (3.5-5.1)
[2022-03-14] MEDS: ENOXAPARIN INJ 40 MG/0.4 ML SYR SQ SCH (08:22)
--- NOTE | 2022-03-14 08:39 | Surgery Progress Note ---
Date of Service March 14, 2022 Assessment & Plan (1) Perforated duodenal ulcer: Plan: POD 3 lap repair/washout Continue his NG tube to wall suction and his DAVE drain to bulb suction WBC 9, continue antibiotics and PPI plan on upper GI tomorrow seen with Dr. Escobar Admission and Anticipated Discharge Date Admission Date: March 12, 2022 Supervising Physician Co-Signing Physician Notes I personally saw and evaluated the patient with Kolby Sanders PA-C and agree with the assessment and plan. 26-year-old male postop day 2/3 from diagnostic laparoscopy, laparoscopic Emiliano patch repair of a perforated duodenal ulcer He is doing well postoperatively Keep NG tube to wall suction and his DAVE drain to bulb suction Continue PPI and IV antibiotics Plan for upper GI study tomorrow Subjective no c/o other than he doesn't want to be in the hospital Physical Exam Gastrointestinal (Abdomen): Inspection/Auscultation: + abdominal surgical incision (dry) and + abdominal surgical drain present (50 cc, serous); abdomen not distended Results & Data ([facility]) Vital Signs (Past 12 Hours) Vital Signs Temp Pulse Pulse Resp BP Pulse Ox 03/14/22 07:47 60 94 03/14/22 07:43 36.7 C 52 L 16 133/82 87 L 03/14/22 06:25 94 03/14/22 04:47 37 C 85 14 126/77 85 L 03/13/22 21:11 36.7 C 62 14 123/71 92 PG Care Time/CCT Total # of Minutes Spent Total Time Spent with Patient: Total time spent is greater than 50% in coordination of care (as documented) at patient's floor/unit and/or counseling patient: Coding Level of Care Code None Diagnoses Perforated duodenal ulcer K26.5
[2022-03-14] MEDS ORDERED: D5W IV SCH (16:00)
[2022-03-14] MEDS ORDERED: PERIPHERAL TPN IV SCH (16:00)
[2022-03-14] MEDS ORDERED: AMINO ACIDS 4.25% IV SCH (16:00)
[2022-03-14] MEDS ORDERED: CLINOLIPID 20% IV FAT EMULSION 250 ML IV SCH (16:00)
--- NOTE | 2022-03-14 16:08 | XRay Report ---
XR chest 1V portable CLINICAL HISTORY: shortness of breath TECHNIQUE: Single frontal radiograph of the chest was obtained. Comparison: Comparison is made to chest radiograph 03/11/[address] abdomen pelvis 03/11/2022 FINDINGS: An enteric tube tip terminates in the stomach. The side port is not clearly visualized. The cardiomed iastinal silhouette is normal. The lungs are clear. No evidence of pleural effusion or pneumothorax. Partial visualization of pneumoperitoneum. IMPRESSION: 1. No evidence of pneumonia or pneumothorax. 2. Redemonstration of pneumoperitoneum better seen on prior CT abdomen pelvis. ACT 112: Negative or not required by law. Electronically signed by: Molina Blum M.D. 03/14/2022 4:07 PM
[2022-03-14] MEDS: CHLORASEPTIC 1.4% SOLN 180 ML BTL MT PRN ×2 (16:42→23:22)
--- NOTE | 2022-03-14 18:47 | XRay Report ---
XR KUB/Abdomen 1 view CLINICAL HISTORY: confirm ng tube placement TECHNIQUE: 1 view of the abdomen was obtained. Comparison: Comparison is made to abdomen radiograph 03/13/2022 FINDINGS: Enteric tube is in satisfactory position with the side-port and tip in the stomach. The osseous struc tures are grossly unremarkable. The bowel gas pattern is nonobstructive. A moderate amount of stool i s noted within the large bowel. IMPRESSION: Satisfactory position of enteric tube. ACT 112: Negative or not required by law. Electronically signed by: Molina Blum M.D. 03/14/2022 6:45 PM
[2022-03-14] MEDS: STOP CLINOLIPID SCH (22:04)
[2022-03-15] MEDS: PANTOprazole 40 MG in DEXTROSE 5% 100 ML IV SCH ×5 (00:02→19:40)
[2022-03-15] MEDS: MoRPHine SULFATE 4 MG/ML 1 ML CARP\\VIAL IV PRN ×4 (00:03→21:47)
[2022-03-15] MEDS: PIPERACILLIN/TAZOBACTAM 3.375 GM in DEXTROSE 5% 100 ML IV SCH ×3 (01:37→19:37)
[2022-03-15] MEDS: CHLORASEPTIC 1.4% SOLN 180 ML BTL MT PRN ×2 (04:10→08:29)
[2022-03-15] MEDS: diphenhydrAMINE 50 MG/ML VIAL IV PRN ×4 (04:54→23:33)
[2022-03-15 07:30] LABS: Basophils # (auto) 0.01 K/uL (0-0.2); Basophils % (auto) 0.1 %; Eosinophils # (auto) 0.11 K/uL (0-0.5); Eosinophils % (auto) 1.5 %; Hematocrit (blood only) 34.4 % (42-52); Hemoglobin 12.1 g/dL (14.0-18.0); Immature Granulocytes # (auto) 0.02 K/uL (0.00-0.02); Immature Granulocytes % (auto) 0.3 %; Lymphocytes # (auto) 1.66 K/uL (1.2-3.4); Lymphocytes % (auto) 22.7 %; Mean Corpuscular Hemoglobin 27.9 pg (25-34); Mean Corpuscular Hgb Conc 35.2 g/dL (32-36); Mean Corpuscular Volume 79.3 fL (80-100); Mean Platelet Volume 10.6 fL (7.4-10.4); Monocytes # (auto) 0.59 K/uL (0.11-0.59); Monocytes % (auto) 8.1 %; Neutrophils # (auto) 4.91 K/uL (1.4-6.5); Neutrophils % (auto) 67.3 %; Platelet Count 265 K/uL (130-400); RDW Coefficient of Variation 11.4 % (11.5-14.5); Red Blood Count 4.34 M/uL (4.7-6.1)
[2022-03-15 07:48] LABS: Anion Gap 5 (3-11); BUN Creatinine Ratio 15.7 (10-20); Blood Urea Nitrogen 11 mg/dl (6-23); Calcium 8.4 mg/dl (8.5-10.1); Carbon Dioxide 26 mmol/L (21-32); Chloride 107 mmol/L (98-107); Creatinine Clr Calc Pharmacy 157.4 ml/min; Est GFR (African American) > 150.0 ml/min; Est GFR (Non-African American) 132.1 ml/min; Glucose 102 mg/dl (70-99(Fasting)); Magnesium 1.8 mg/dl (1.7-2.4); Phosphorus 4.2 mg/dl (2.5-4.9); Potassium 3.8 mmol/L (3.5-5.1); Sodium 138 mmol/L (136-145)
[2022-03-15] MEDS: ENOXAPARIN INJ 40 MG/0.4 ML SYR SQ SCH (08:22)
--- NOTE | 2022-03-15 14:51 | Fluoroscopy Report ---
SINGLE CONTRAST UPPER GI SERIES UTILIZING OPTIRAY CLINICAL HISTORY: repair duodenal ulcer, check for leak COMPARISON STUDY: CT of the abdomen and pelvis March 11, 2022. KUB March 14, 2022. FLUOROSCOPY TIME: 2.1 minutes. FLUOROSCOPIC IMAGES: 13 PROCEDURE AND FINDINGS: [employer] fluoroscopic image of the upper abdomen was obtained. This demonstrated a surgical drain and nasogastric tube. Patient then ingested 150 cc of Optiray 300. No esophageal or gastric abnormality is identified although mucosal detail is diminished given single contrast techni que. Surgical drain is in place. No extraluminal contrast is identified to suggest a leak. There is m ild luminal narrowing of the proximal duodenum which may be due to edema. Caliber of the opacified je junum is normal. IMPRESSION: 1. No contrast extravasation to suggest leak. 2. Mild luminal narrowing of the proximal duodenum which may be due to edema. ACT 112: Negative or not required by law. Electronically signed by: Sebastian Macdonald M.D. 03/15/2022 2:49 PM
--- NOTE | 2022-03-15 15:20 | Surgery Progress Note ---
Date of Service March 15, 2022 Assessment & Plan (1) Perforated duodenal ulcer: Plan: POD 4 lap repair/washout contrast study negative, will d/c NG and start clears WBC 7, continue antibiotics and PPI, add Diflucan keep drain until tomorrow seen with Dr. Orozco Admission and Anticipated Discharge Date Admission Date: March 12, 2022 Supervising Physician Co-Signing Physician Notes Patient seen and examined, labs and imaging reviewed, agree with above. 26 y/o male s/p laparoscopic repair perforated duodenal ulcer, POD#4. no pain. afvss, nad, abd soft, nt, nd. incisions w/o infection. DAVE ss. wbc 7. cultures from surgery with C. albicans. UGI reviewed with radiologist, no leak. d/c ng, start on clears. Advance diet tomorrow, DAVE out tomorrow. Add diflucan. awaiting stool for h pylori. continue PPI, change to iv BID. Will start carafate tomorrow. Will need 7 days treatment with oral abx and diflucan as outpatient. F/u EGD in 8-12 weeks with GI. Subjective no new complaints, no pain Physical Exam Constitutional: WD/WN, vitals as above Gastrointestinal (Abdomen): Inspection/Auscultation: + abdominal surgical incision (dry) and + abdominal surgical drain present (serous); abdomen not distended Results & Data ([facility]) Vital Signs (Past 12 Hours) Vital Signs Temp Pulse Resp BP Pulse Ox 03/15/22 05:49 36.9 C 55 L 16 117/76 93 PG Care Time/CCT Total # of Minutes Spent Total Time Spent with Patient: Total time spent is greater than 50% in coordination of care (as documented) at patient's floor/unit and/or counseling patient: Coding Level of Care Code None Diagnoses Perforated duodenal ulcer K26.5
[2022-03-15] MEDS: FLUCONAZOLE 200 MG/100 ML BAG IV SCH ×4 (15:25→18:30)
[2022-03-15] MEDS ORDERED: D5W IV SCH (16:00)
[2022-03-15] MEDS ORDERED: AMINO ACIDS 4.25% IV SCH (16:00)
[2022-03-15] MEDS ORDERED: CLINOLIPID 20% IV FAT EMULSION 250 ML IV SCH (16:00)
[2022-03-15] MEDS ORDERED: PERIPHERAL TPN IV SCH (16:00)
[2022-03-15] MEDS: MoRPHine SULFATE 2 MG/ML CARP IV PRN (16:55)
[2022-03-15] MEDS: STOP CLINOLIPID SCH (21:48)
[2022-03-16] MEDS: PANTOprazole 40 MG in DEXTROSE 5% 100 ML IV SCH ×4 (00:33→15:19)
[2022-03-16] MEDS: MoRPHine SULFATE 2 MG/ML CARP IV PRN ×2 (01:29→05:29)
[2022-03-16] MEDS: PIPERACILLIN/TAZOBACTAM 3.375 GM in DEXTROSE 5% 100 ML IV SCH ×2 (01:34→09:43)
[2022-03-16 08:09] LABS: Anion Gap 6 (3-11); BUN Creatinine Ratio 15.5 (10-20); Blood Urea Nitrogen 11 mg/dl (6-23); Calcium 9.1 mg/dl (8.5-10.1); Carbon Dioxide 24 mmol/L (21-32); Chloride 106 mmol/L (98-107); Creatinine Clr Calc Pharmacy 155.2 ml/min; Est GFR (African American) > 150.0 ml/min; Est GFR (Non-African American) 131.3 ml/min; Glucose 98 mg/dl (70-99(Fasting)); Magnesium 1.9 mg/dl (1.7-2.4); Phosphorus 4.2 mg/dl (2.5-4.9); Sodium 136 mmol/L (136-145)
[2022-03-16] MEDS: ENOXAPARIN INJ 40 MG/0.4 ML SYR SQ SCH (09:41)
[2022-03-16] MEDS ORDERED: oxyCODONE/ACETAMINOPHEN 5mg/325mg TAB PO PRN ×2 (10:53)
--- NOTE | 2022-03-16 13:36 | Surgery Progress Note ---
Date of Service March 16, 2022 Assessment & Plan (1) Perforated duodenal ulcer: Plan: POD 5 lap repair/washout Pain controlled. Patient with no complaints Tolerating advancement to full liquids, will trial regular diet for lunch Will remove DAVE drain prior to discharge Plan to continue on twice daily PPI, and complete course of abx/antifungal...will recommend 7 days of augmentin + diflucan F/u in clinic in 1-2 weeks Will need set up for outpatient scope with GI in the future Admission and Anticipated Discharge Date Admission Date: March 12, 2022 Supervising Physician Co-Signing Physician Notes Patient seen and examined, labs and imaging reviewed, agree with above. 26 y/o male s/p laparoscopic repair perforated duodenal ulcer, POD#5. no pain. afvss, nad, abd soft, nt, nd. incisions w/o infection. DAVE ss. wbc 7. cultures from surgery with C. albicans. continue PPI, bid transition to oral meds. Will need 7 days treatment with oral abx and diflucan as outpatient. F/u EGD in 8-12 weeks with GI stools unable to be sent for h pylori culture as patient flushed. will need as outpatient or biopsy during EGD wound care instructions and activity restrictions reviewed, return precautions given avoid NSAIDS Subjective Patient says he is feeling good. Asking when he can eat and go back to alf. Physical Exam Physical Exam: awake/alert Gastrointestinal (Abdomen): Inspection/Auscultation: + abdominal surgical incision (c/d/i); abdomen not distended Percussion/Palpation: abdomen soft; abdomen nontender DAVE drain serosang Results & Data ([facility]) Vital Signs (Past 12 Hours) Vital Signs Temp Pulse Resp BP Pulse Ox 03/16/22 07:26 36.9 C 57 L 17 111/69 94 PG Care Time/CCT Total # of Minutes Spent Total Time Spent with Patient: Total time spent is greater than 50% in coordination of care (as documented) at patient's floor/unit and/or counseling patient: Coding Level of Care Code None Diagnoses Perforated duodenal ulcer K26.5
[2022-03-16] MEDS ORDERED: FLUCONAZOLE 200 MG/100 ML BAG IV SCH ×2 (16:00→17:00)
--- NOTE | 2022-03-17 09:59 | Discharge Summary ---
Date of Service March 16, 2022 Admission HPI Per Admitting Provider 26-year-old incarcerated male presented emergency department with sudden onset abdominal pain. Precipitating factors. No prior episodes. He admits to some reflux over the past few weeks. He is not taking any anti-inflammatories. Denies swallowing any foreign bodies. No history of ulcers. No family history of cancer. Otherwise healthy, not on any blood thinners. Principal Diagnosis perforated duodenal ulcer Discharge Exam awake/alert, no acute distress Gastrointestinal (Abdomen) Inspection/Auscultation: + abdominal surgical incision (c/d/i with skin glue) and + abdominal surgical drain present (serous output, removed prior to d/c); abdomen not distended Percussion/Palpation: abdomen soft; abdomen nontender Discharge Data Allergies Allergy/AdvReac Type Severity Reaction Status Date / Time No Known Allergies Allergy Verified 03/11/22 23:58 Consultations 03/11/22 21:01 Consult General Surgery Routine Procedures Performed Operation Date: 03/11/22 22:00 Actual Procedures p Dignostic Laparoscopy Repair of Perforated Duodenal Ulcer with Emiliano Patch and Washout - Skyler Orozco, , FACS Ordered Studies 03/11/22 17:57 CT abd pelvis IV con only Stat Hospital Course (1) Perforated duodenal ulcer: This is a 26y M prisoner who presented to the [facility] ED on 03/11/22 with complaints of abdominal pain. Workup in the ER with a CT a/p revealed pneumoperitoneum with concern for perforated viscous. The patient was taken to the OR with Dr. Orozco on 03/11 and underwent laparoscopic repair of perforated duodenal ulcer. The patient tolerated the procedure well, see op note for full details. The patient recovered in the PACU and was transferred to the med/surg floor in stable condition with an NGT, IV abx, PPI gtt, and DAVE drain. He remained NPO with NGT and was started on PPN over the weekend. His pain remained well controlled on prn pain medication. On POD#4 he underwent an upper GI that revealed no evidence of leak. His NGT was removed and he was started on a clear liquid diet. OR cultures returned + for breanne albicans and he was started on Diflucan for this. On 03/16 the patient's diet was advanced to full liquids and then to regular without issues. PPN discontinued. DAVE drain remained serosang. throughout his stay and it was removed prior to discharge. On 03/16 the patient was deemed stable for discharge back to jail. He was to complete a 7 day course of Augmentin and Diflucan in addition to continuing on a twice daily PPI. He was instructed to follow up with GI as an outpatient for an EGD in the next 8-12 weeks. Unable to collect a stool sample for h.pylori during his admission as he flushed it, but hopeful GI can obtain a possible biopsy for this during their evaluation. Patient to follow up in clinic within [address] Orozco. Total Time Total Time Spent Total Time Spent (In Minutes): 15 Discharge Plan Discharge Items Patient Disposition: [facility] Reason For Visit: PERFORATED ULCER Discharge Diagnosis: Repair of perforated ulcer Activity: As commented below Lifting: No more than 10 pounds Bathing Comment: ok to shower Non-emergency contact: Surgeon Call non-emergency contact if: you have any medication questions, your pain is not controlled, you have a fever, your temperature is above 101.5 and your wound has increased redness Follow-up/Referrals: Leonardo Paige DO [Physician] - (Please call to schedule an appointment with the uniform patrol police officer in the next 8-12 weeks to schedule an outpatient upper endoscopy) Skyler Orozco DO, FACS [Physician] - (Follow up in clinic within 1-2 weeks) Jennyfer CLAROS [Primary Care Provider] - Diet: Regular Addtl Attending Provider Instructions: You can take Tylenol #3 as needed for pain New Medications: - Prilosec 40mg orally twice daily, an antacid medication to continue this until told to stop - Augmentin 875mg orally twice daily, antibiotic to continue for 7 more days - Diflucan 200mg orally once daily, antifungal to continue for 7 more days Please call to schedule an appointment with the uniform patrol police officer in the next 8-12 weeks to schedule an outpatient EGD Pending Studies at Discharge: No Stand-Alone Forms: My [employer], Smoking Cessation Skilled Items Patient informed of condition?: Yes Discharge Level of Care: Other Communicable Disease: No Discharge Prognosis: Stable Lines: None Urinary Catheter: No Medications and DC Order Prescriptions: New omeprazole 40 mg capsule,delayed release(DR/EC) 40 mg PO BID Qty: 60 RF: 0 amoxicillin-pot clavulanate 875-125 mg tablet 1 tab PO BID Qty: 14 RF: 0 fluconazole [Diflucan] 200 mg tablet 200 mg PO DAILY 7 Days Qty: 7 RF: 0 Discharge Orders: Discharge Order (Routine); Ordered 03/16/22 Ordered By: Kajal Meier Admission Data Admit Date/Time: 03/12/22 00:10 Attending Provider: Skyler Orozco Admit Provider: Skyler Orozco Primary Care Provider: Jennyfer CLAROS Other Providers: Skyler Orozco Other Interventions: Discharge Summary Assessment (RN) Last Done: 03/16/22 15:17 Coding Level of Care Code D/C DAY MANAGEMENT <30 MINS Diagnoses Perforated duodenal ulcer K26.5
--- NOTE | 2022-03-19 08:39 | Coding Query ---
CODING QUERY To promote full compliance with coding requirements relating to patient care, provider participation is requested in all cases of plant and maintenance technician uncertainty. Please assist us with the question(s) below: Coding Question(s): Patient admitted with perforated duodenal ulcer, Repaired with omental patch. Operative postop report documented Peritonitis, not mentioned on Discharge Summary . Please check below appropriate response pertaining to Peritonitis. Thanks for your help! KISHA Blount [facility] Physician's Response(s): x__ Pt had peritonitis POA Patient did not have peritonitis Cannot clinically correlate if patient had peritonitis Other/ Please document: Principal Diagnosis: "that condition established after study, to be chiefly responsible for occasioning the admission of the patient to the hospital for care." Co-Existing Principal Diagnosis: "when two or more diagnoses equally meet the criteria for principal diagnosis as determined by the circumstances of admission, diagnostic work up, and/or therapy provided, and the Alphabetic Index, Tabular List, or another coding guideline does not provide sequencing direction, any one of the diagnoses may be sequenced first." "When the physician has documented what appears to be a current diagnosis in the body of the record, but has not included the diagnosis in the final diagnostic statement, the physician should be asked whether the diagnosis should be added." (Source Coding Clinic 2 QTR90. p3-4) KADIE
== END 2022-03-16 16:45 | DRG 326 ==
LOC: ED 17:30 → OR 22:01 → 3N 03-12 00:10